=== PATIENT | male | born 1955 | race Caucasian/White ===

== ENCOUNTER 2024-01-07 09:01 | Day surgery (SDC) | payer MEDICARE, OTHER ==
[~2024-01-07] VITALS: Ht 180.3 cm; Wt 90.9 kg
[~2024-01-07 09:01] MED LIST: GLYCOPYRROLATE 0.2 MG/ML VIAL ONE; LIDOCAINE/PF 2% 5 ML VIAL ONE; PROPOFOL 1% 20 ML VIAL IVP ONE; SODIUM CHLORIDE 0.9% 1,000 ML ONE
[2024-01-07] MEDS: SODIUM CHLORIDE 0.9% 1,000 ML IV ONE (09:46)
[2024-01-07] MEDS ORDERED: OXYGEN THERAPY IH SCH (10:15)
== END 2024-01-07 11:40 | disposition home or self-care (01) ==
LOC: SURGERY 09:01
PROVIDERS: ATTEND Specialist
DX: R10.13 Epigastric pain (principal); K29.70 Gastritis, unspecified, without bleeding; K44.9 Diaphragmatic hernia without obstruction or gangrene; I10 Essential (primary) hypertension; K21.9 Gastro-esophageal reflux disease without esophagitis; F41.9 Anxiety disorder, unspecified; Z85.89 Personal history of malignant neoplasm of other organs and systems; Z87.891 Personal history of nicotine dependence; Z79.899 Other long term (current) drug therapy; Z98.890 Other specified postprocedural states; Z82.49 Family history of ischemic heart disease and other diseases of the circulatory system
CPT/HCPCS: 43239; 88305; C1769; J2704; J3490 ×2; J7030